=== PATIENT | female | born 1955 | race Caucasian/White ===

== ENCOUNTER 2018-02-08 08:35 | Day surgery (SDC) | payer OTHER ==
[2018-02-07 09:38] VITALS: BP 156/79
[~2018-02-08] VITALS: Ht 175.3 cm; Wt 104.6 kg
[~2018-02-08 08:35] MED LIST: BUPIVACAINE/PF 0.25% ONE; DICL75TA2 PO; EPINEPHRINE 1 MG/ML, 1ML ONE
[2018-02-08] MEDS ORDERED: FENTANYL PF 100 MCG/2ML ONE (08:50)
[2018-02-08] MEDS ORDERED: MIDAZOLAM 1 MG/ML, 2ML ONE (08:50)
[2018-02-08] MEDS ORDERED: ONDANSETRON 2MG/ML, 2ML IVPush ONE (09:00)
[2018-02-08] MEDS ORDERED: GABAPENTIN 300 MG CAPSULE PO ONE (09:00)
[2018-02-08] MEDS ORDERED: SCOPOLAMINE PATCH, 1.5MG PATCH.TD72 TD ONE (09:00)
[2018-02-08] MEDS ORDERED: ACETAMINOPHEN 500 MG TABLET PO ONE (09:00)
[2018-02-08] MEDS ORDERED: OxyconTIN ER 10 MG TAB.ER PO ONE (09:00)
[2018-02-08] MEDS ORDERED: LACTATED RINGERS 1,000 ML IV SCH (09:00)
[2018-02-08] MEDS ORDERED: ROCURONIUM 10MG/ML,5ML ONE (09:58)
[2018-02-08] MEDS ORDERED: GLYCOPYRROLATE 0.2MG/1ML, 5ML ONE (09:58)
[2018-02-08] MEDS ORDERED: DEXAMETHASONE 4 MG/ML, 1ML ONE (09:58)
[2018-02-08] MEDS ORDERED: SUCCINYLCHOLINE 20 MG/ML, 10ML ONE (09:58)
[2018-02-08] MEDS ORDERED: ONDANSETRON 2MG/ML, 2ML ONE (09:58)
[2018-02-08] MEDS ORDERED: CEFAZOLIN 1,000 MG ONE (09:58)
[2018-02-08] MEDS ORDERED: NEOSTIGMINE 1 MG/ML, 10ML ONE (09:58)
[2018-02-08] MEDS ORDERED: PROPOFOL 10 MG/ML, 20ML ONE (09:58)
[2018-02-08] MEDS ORDERED: KETOROLAC 30 MG/1 ML IV PRN (10:30)
[2018-02-08] MEDS ORDERED: LABETALOL 5MG/ML, 20ML IV PRN (10:30)
[2018-02-08] MEDS ORDERED: PROMETHAZINE 25 MG/ML, 1ML IV PRN (10:30)
[2018-02-08] MEDS ORDERED: hydrALAzine 20 MG/ML, 1ML IV PRN (10:30)
[2018-02-08] MEDS ORDERED: ALBUTEROL SULFATE 2.5 MG/3 ML NPPB PRN (10:30)
[2018-02-08] MEDS ORDERED: FENTANYL PF 100 MCG/2ML IV PRN (10:30)
[2018-02-08] MEDS ORDERED: OXYcodone 5 MG/5 ML ORAL.SOL UDC PO PRN (10:30)
[2018-02-08] MEDS ORDERED: MEPERIDINE/PF 25MG/0.5ML IVPush PRN (10:30)
[2018-02-08] MEDS ORDERED: HYDROmorphone 1 MG/ML, 1ML IV PRN (10:30)
[2018-02-08] MEDS ORDERED: METOCLOPRAMIDE 5 MG/ML, 2ML IV PRN (10:30)
[2018-02-08] MEDS ORDERED: ONDANSETRON 2MG/ML, 2ML IVPush PRN (10:30)
== END 2018-02-08 16:40 ==
LOC: OUT 08:35 → EDSTATUS 10:45 → OUT 16:40
PROVIDERS: ATTEND Orthopaedic Surgery
DX: S46.011A Strain of muscle(s) and tendon(s) of the rotator cuff of right shoulder, initial encounter (principal); M24.111 Other articular cartilage disorders, right shoulder; M19.90 Unspecified osteoarthritis, unspecified site; M67.813 Other specified disorders of tendon, right shoulder; W19.XXXA Unspecified fall, initial encounter; Y93.89 Activity, other specified; Y92.89 Other specified places as the place of occurrence of the external cause; Y99.8 Other external cause status; Z79.899 Other long term (current) drug therapy; Z72.89 Other problems related to lifestyle; Z88.2 Allergy status to sulfonamides; Z86.69 Personal history of other diseases of the nervous system and sense organs; Z90.710 Acquired absence of both cervix and uterus; Z98.890 Other specified postprocedural states
CPT/HCPCS: 29822; 29826; 29827; 29828; 64415; 93005; C1713; J0171; J0330; J0690; J1100; J2250; J2405; J2704; J2710; J3010; J3490; J7120

== ENCOUNTER → 2020-02-26 | Outpatient (CLI) | payer OTHER ==
[~2020-02-26] MED LIST changes: -BUPIVACAINE/PF 0.25% ONE; -DICL75TA2 PO; +DICL75TA3 PO; -EPINEPHRINE 1 MG/ML, 1ML ONE
== END | disposition home or self-care (01) ==
LOC: CFH 13:05
PROVIDERS: ATTEND Genetic Counselor, MS
DX: Z12.31 Encounter for screening mammogram for malignant neoplasm of breast (principal)
CPT/HCPCS: 77063; 77067